=== PATIENT | male | born 2005 | race Caucasian/White ===

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

== ENCOUNTER 2024-10-30 13:10 | Emergency (ER) | payer BC ==
--- OUTSIDE RECORDS SUMMARY | 2024-10-30 13:13 | XMS REPORT | Continuity of Care Document ---
Author Name Unknown Address [address] [facility] [address] [place] [address] [facility] thconnect Address [address] [facility] [address] [place] [address] Care Team Providers Care Employee Relations Manager Name Role Phone Doctor Unassigned, [place] Attending Clinician Garfield Russell DO Attending Clinician Indira Draper Attending Clinician [phone] Payers Payer Name Policy Type Policy Number Effective Date Expirati on Date Source Problems Condition Name Condition Details Condition Category Status Onset Date Resolution Date Last Treatment Date Treating Clinician Comments Source Behavior causing concern in biological child Behavior causing concern in biological child Disease Active 2016-11 00:00: 00 [facility] Behavior causing concern in biological child Behavior causing concern in biological child Disease Active 2016-11 00:00: 00 [facility] Acne, unspecifie d acne type Acne, unspecifie d acne type Disease Active 06-24 00:00: 00 [facility] Varicocele Varicocele Disease Active 06-24 00:00: 00 [facility] Hx of hydrocele Hx of hydrocele Disease Active 06-24 00:00: 00 [facility] Hx of hydrocele Hx of hydrocele Disease Active 06-24 00:00: 00 [facility] Attention deficit hyperactiv ity disorder (ADHD), unspecifie d ADHD type Attention deficit hyperactiv ity disorder (ADHD), unspecifie d ADHD type Disease Active 11-07 00:00: 00 [facility] Social History Social Habit Start Date Stop Date Quantity Comments Source Sex Assigned At [facility] Tobacco use and exposure 2019-08-01 00:00:00 2019-08-01 00:00:00 Never used [facility] Tobacco Comment 2017-06-24 00:00:00 2017-06-24 00:00:00 mOC smokes outside the home [facility] Smoking Status Start Date Stop Date Source Never smoker [facility] Medications Ordered Medication Name Filled Medication Name Start Date Stop Date Current Medication? Ordering Clinician Indication Dosage Frequency Signature (SIG) Comments Components Source escitalopra m oxalate 5 mg tablet 07-26 00:00: 00 Yes TK ONE T PO QHS [facility] benzonatate (TESSALON PERLES) capsule 100 mg 07-19 03:00: 00 07-19 01:55 :00 No 100mg 100 mg, Oral, ONCE NOW, 1 dose, Thu07/18/19 at 2200, Routine [facility] NaCl 0.9% (NS) bolus infusion 1,000 mL 07-18 17:45: 00 07-18 23:33 :00 No 1000mL at 999 mL/hr, 1,000 mL, IV Infusion, ONCE, 1 dose, Thu07/18/19 at 1245, STAT [facility] guanFACINE ER 1 mg tablet 11-23 00:00: 00 Yes TK 1 T PO D [facility] CETIRIZINE 10 mg tablet 2017-11 00:00: 00 Yes TAKE 1 TABLET BY MOUTH EVERY DAY [facility] ibuprofen 600 mg tablet 04-01 00:00: 00 Yes 600mg Take 1 tablet by mouth every 8 (eight) hours as needed (alternate with T3 for pain). [facility] clindamycin -benzoyl peroxide (BENZACLIN) gel 06-24 00:00: 00 Yes [id number] Apply to area(s) 2 (two) times daily. [facility] Vital Signs Vital Name Observation Time Observation Value Comments S alyssia Systolic blood pressure 2019-07-19 00:00:00 122 mm[Hg] [facility] Diastolic blood pressure 2019-07-19 00:00:00 82 mm[Hg] [facility] Heart rate 2019-07-19 00:00:00 102 /min [facility] Respiratory rate 2019-07-19 00:00:00 27 /min [facility] Oxygen saturation in Arterial blood by Pulse oximetry 2019-07-19 00:00:00 99 /min [facility] Body temperature 2019-07-18 17:20:00 36.94 Torrie [facility] Body height 2019-07-18 17:20:[address] [facility] Body weight 2019-07-18 17:20:[address] [facility] BMI 2019-07-18 17:20:00 19.34 kg/m2 [facility] Procedures Procedure Date / Time Performed Performing Clinician Source AUTHORIZATION FOR RELEASE OF PHI 2020-07-22 05:01:00 Doctor Unassigned, [place] [facility] COMP. METABOLIC PANEL ([id number]) 2019-07-18 17:49:00 Garfield Cowart [facility] SALICYLATE 2019-07-18 17:49:00 Garfield Cowart [facility] ETHANOL 2019-07-18 17:49:00 [facility]field [facility] URINALYSIS 2019-07-18 17:49:00 Garfield Cowart [facility] ADC / LCC - DRUG SCREEN TRIAGE 2019-07-18 17:49:00 Garfield Cowart [facility] CBC WITH DIFFERENTIAL 2019-07-18 17:49:00 Minh Cowart [facility] NOTICE OF PRIVACY PRACTICES 2019-07-18 17:03:09 Doctor Unassigned, [place] [facility] CONSENT/REFUSAL FOR DIAGNOSIS AND TREATMENT 2019-07-18 17:02:59 Doctor Unassigned, [place] [facility] Encounters Start Date/Time End Date/Time Encounter Type Admission Type Attending Clinicians Care Facility Care Department Encounter ID Source 2023-10-16 11:02:36 2023-10-16 11:02:36 Outpatient [facility] [id number] Garth Akbar Malik 2023-09-04 13:02:10 2023-09-04 13:02:10 Outpatient [facility] [id number] Garth Gan 2020-07-22 00:00:00 2020-07-22 00:00:00 Orders Only Doctor Unassigned, [place] [facility] [id number] [facility] 2019-07-18 12:20:46 2019-07-18 22:25:00 Emergency Cowart Garfield [facility] [id number] [facility] 2019-07-18 00:00:00 2019-07-18 00:00:00 Orders Only Doctor Unassigned, [place] [facility] [id number] [facility] 2019-07-16 00:00:00 2019-07-16 00:00:00 Telephone Indira Brennan [facility] [id number] [facility] Results Test Description Test Time Test Comments Results Result Co mments Source [facility] 18:39:00* Test Item Value Reference Range Interpretation Comme nts SALICYLATE (test code = 0851407360) <10 mg/L MARC (test code = MARC) Therapeutic Range: ? Analgesic and Antipyretic Use? 20-100 mg/L? Anti-Inflammatory Use? 100-250 mg/LToxic Range:? Greater than 300 mg/L [facility]16 18:38:00* Test Item Value Reference Range Interpretation Comme nts ACETAMINOP (test code = 0243947083) <10.0 10-30 L MARC (test code = MARC) Toxic: Greater kem n 200 ug/mL @ 4 hour post ingestion or greater than 50 ug/mL @ 12 hour post ingestion Lab Interpretation (test code = 80834-0) Abnormal [facility]. METABOLIC PANEL ([id number])2019-07-18 18:37:00* Test Item Value Reference Range Interpretation Comme nts NA (test code = 1999122595) 144 mmol/L 135-145 K (test code = 1656820104) 4.8 mmol/L 3.5-5 CL (test code = 4901384289) 105 mmol/L 98-108 CO2 TOTAL (test code = 2505564422) 28 mmol/L 23-31 AGAP (test code = 3810198526) 2-16 BUN (test code = 3914828196) 15 mg/dL 7-23 GLUCOSE (test code = 6516025076) 87 mg/dL 70-110 CREATININE (test code = 5557432278) 0.74 mg/dL 0.6-1.25 TOTAL BILI (test code = 3480633848) 0.8 mg/dL 0.1-1.1 CALCIUM (test code = 7702669560) 10.2 mg/dL 8.6-10.6 T PROTEIN (test code = 0078972730) 8.0 g/dL 6.3-8.2 ALBUMIN (test code = 5717795079) 5.0 g/dL 3.5-5 ALK PHOS (test code = 8670390381) 177 U/L 60-420 ALT(SGPT) (test code = 2521471703) 21 U/L 9-51 AST(SGOT) (test code = 1961801217) 24 U/L 13-40 MARC (test code = [...] imaging tests). Lab Interpretation (test code = 70570-4) Normal [facility] - DRUG S[facility]EN [id number] 18:34:00* Test Item Value Reference Range Interpretation Comme nts BENZO U (test code = 6419281615) Negative Negative CARLOS U (test code = 9502619603) Negative Negative AMPHET (test code = 8602507196) Presumptive Positive Negative A THC (test code = 3421494372) Negative Negative METHADONE (test code = 7378006597) Negative Negative Meth U (test code = 0723521526) Negative Negative OPIATES (test code = 3433418679) Negative Negative Cocaine Metabolite (test code = 4502070485) Negative Negative PROPOXY (test code = 2430623869) Negative Negative Tric U (test code = 4568385214) Negative Negative PCP (test code = 3373770439) Negative Negative OXYCOD (test code = 8298935918) Negative Negative MARC (test code = MARC) [...] legal testing). Lab Interpretation (test code = 30824-5) [facility]normal [facility]16 18:14:00* Test Item Value Reference Range Interpretation Comme nts APPEARANCE (test code = 5717243461) Hazy Clear A COLOR (test code = 8565001461) Lucy Yellow A PH (test code = 0813973937) 4.8-8.0 SP GRAVITY (test code = 6422020700) 1.003-1.030 GLU U QUAL (test code = 2425265360) Normal Normal BLOOD (test code = 3550896577) Negative Negative KETONES (test code = 7589076038) Negative Negative PROTEIN (test code = 2887-8) 30 mg/dL Negative A UROBILIN (test code = 9010195753) Normal Normal BILIRUBIN (test code = 2902938301) Negative Negative NITRITE (test code = 5216819835) Negative Negative LEUK SANDEE (test code = 7666316390) Negative Negative RBC/HPF (test code = 1757675763) See_Comment H [Automated messa ge] The system which generated this result transmitted reference range: 0 - 3 HPF. The reference range was not used to interpret this result as normal/abnormal. WBC/HPF (test code = 0088843639) See_Comment [Automated messa ge] The system which generated this result transmitted reference range: 0 - 5 HPF. The reference range was not used to interpret this result as normal/abnormal. BACTERIA (test code = 5283700714) Negative Negative MUCOUS (test code = 7002601823) Marked Negative LPF A SQ EPITH (test code = 6385916882) HPF Lab Interpretation (test code = 64378-4) Abnormal [facility] WITH [id number] 18:05:00* Test Item Value Reference Range Interpretation [...] 34.2 g/dL 32-36 RDW-SD (test code = 64193-7) 38.9 fL 38.5-49 RDW-CV (test code = 788-0) 12.0 % 11.5-14 PLT (test code = 777-3) See_Comment [Automated messa ge] The system which generated this result transmitted reference range: 133 - 320 10*3/?L. The reference range was not used to interpret this result as normal/abnormal. MPV (test code = 42281-0) 10.9 fL 9.3-12.9 NRBC/100 WBC (test code = 1840746553) See_Comment [Automated iFollo ssage] The system which generated this result transmitted reference range: 0.0 - 10.0 /100 WBCs. The reference range was not used to interpret this result as normal/abnormal. NRBC x10^3 (test code = 8306973577) <0.01 See_Comment [Automated messa ge] The system which generated this result transmitted reference range: 10*3/?L. The reference range was not used to interpret this result as normal/abnormal. GRAN MAT (NEUT) % (test code = 770-8) 74.7 % IMM GRAN % (test code = 8637147053) 0.30 % LYMPH % (test code = 736-9) 14.9 % MONO % (test code = 5905-5) 9.0 % EOS % (test code = 713-8) 0.6 % BASO % (test code = 706-2) 0.5 % GRAN MAT x10^3(ANC) (test code = 8986427873) 7.53 10*3/uL 1.5-10.3 IMM GRAN x10^3 (test code = 4546619690) 0.03 10*3/uL 0-0.06 LYMPH x10^3 (test code = 731-0) 1.50 10*3/uL 0.7-7.4 MONO x10^3 (test code = 742-7) 0.91 10*3/uL 0-0.5 H EOS x10^3 (test code = 711-2) 0.06 10*3/uL 0-0.4 BASO x10^3 (test code = 704-7) 0.05 10*3/uL 0-0.1 Lab Interpretation (test code = 71632-1) Abnormal [facility]"
[2024-10-30 13:49] LABS: Absolute Eosinophils 0.1 K/uL (0-0.5); Absolute Lymphocytes (CBC) 1.8 K/uL (0.7-4.9); Absolute Monocytes 0.7 K/uL (0.1-1.3); Absolute Neutrophil 4.1 K/uL (1.8-8.0); Basophils % 0.3 % (0-1.3); Eosinophils % 1.4 % (0-4.4); Hematocrit 47.1 % (39.6-49.0); Hemoglobin 16.1 g/dL (13.6-17.9); Lymphocytes % 26.7 % (15.3-44.8); MCH 30.7 pg (27.0-35.0); MCHC 34.1 g/dL (32.0-36.0); MPV 9.2 fL (7.6-11.3); Monocytes % 10.8 % (3.3-12.3); Neutrophils % 60.8 % (41.7-73.7); Platelets 198 thou/uL (152-406); RBC Red Blood Cell Count 5.23 M/uL (4.33-5.43); Red Cell Distribution Width 12.6 % (12.1-15.2)
[2024-10-30 14:06] LABS: Albumin 4.3 g/dL (3.4-5.0); Albumin/Globulin Ratio 1.3 (1.1-1.8); Anion Gap 10.7 mEq/L (5.0-15.0); Bilirubin Direct 0.2 mg/dL (0-0.2); Bilirubin Indirect, Calculated 0.6 mg/dL (0.2-0.8); Bilirubin Total 0.8 mg/dL (0.2-1.0); Globulin 3.2 g/dL (2.3-3.5); Potassium 3.7 mEq/L (3.5-5.1); Protein, Total 7.5 g/dL (6.4-8.2)
[2024-10-30] MEDS ORDERED: LEVETIRACETAM 500 MG/5 ML VIAL IV ONE ×2 (14:07→14:08)
[2024-10-30] MEDS ORDERED: NA CHLORIDE 0.9% 100 ML ONE (14:08)
[2024-10-30] MEDS ORDERED: NA CHLORIDE 0.9% 1,000 ML ONE (14:08)
[2024-10-30 14:09] LABS: Specific Gravity 1.028 (1.005-1.030); Sqamous Epithelial <5 /HPF (None Seen); Urine Bacteria None Seen /HPF (<20); Urine Bilirubin NEGATIVE (Negative); Urine Blood Negative (Negative); Urine Clarity Clear (Clear); Urine Color Yellow (Yellow); Urine Culture Reflex Order NOT NEEDED; Urine Glucose NEGATIVE (Negative); Urine Ketones 1+ (Negative); Urine Microscopic Reflex YN ORDER UMIC; Urine Mucus Slight /HPF (None Seen); Urine Nitrite NEGATIVE (Negative); Urine Protein 1+ (Negative); Urine RBC <5 /HPF (None Seen); Urine Urobilinogen 3+ (Normal); Urine WBC <5 /HPF (<5); Urine pH 6.5 (5.0-7.0)
[2024-10-30 14:19] LABS: Barbiturates NEGATIVE (NEGATIVE); Benzodiazepines NEGATIVE (NEGATIVE); Cocaine NEGATIVE (NEGATIVE); METHAMPHETAM NEGATIVE (NEGATIVE); Methadone NEGATIVE (NEGATIVE); Opiates NEGATIVE (NEGATIVE); Phencyclidine NEGATIVE (NEGATIVE); THC Cannibis NEGATIVE (NEGATIVE)
--- NOTE | 2024-10-30 14:53 | RAD REPORT ---
EXAMINATION: CT HEAD WITHOUT CONTRAST CLINICAL INDICATION: Male, 19 years old.poss seizure, confused TECHNIQUE: Axial CT images from the skull base to the vertex without intravenous contrast. Coronal an d sagittal reformatted images were created from the data set. One or more of the following dose reduction techniques were used: Automated exposure control, adjustment of the mA and/or kV according to patient size, and/or iterative reconstruction. Unless otherwise specified, incidental findings do not require dedicated imaging follow-up. [id number]. COMPARISON: No prior exam. FINDINGS: INTRACRANIAL: No acute intracranial hemorrhage. No hydrocephalus. No mass effect or midline shift. No significant white matter disease VASCULATURE: No visualized abnormalities in the arteries or dural venous sinuses. SCALP/SKULL: No significant soft tissue or osseous abnormalities. SINUSES: Mucosal thickening right maxillary sinus. IMPRESSION: No acute intracranial abnormality.
--- NOTE | 2024-10-30 15:35 | ER ---
Nurse's Notes [facility] Name: Rafia Garrison Age: 19 yrs Sex: Male : 2005 Arrival Date: 10/30/2024 Time: 13:10 Bed 14 Private MD: Diagnosis: Other seizures Presentation: 10/30 13:19 Chief complaint: EMS states: possible seizure, witnessed by family, said was out for tm6 1-2 minutes. Patient smoked a CBD vape 4 days ago. Patient states he has been under a lot of stress lately. N/V x3 days, constipation x4 days, not eating much x1 week. Patient states he has a "stretchy feeling" in left chest. 13:22 Coronavirus screen: Client denies travel out of the [place] in the last 14 days. Ebola tm6 Screen: Patient negative for fever greater than or equal to 101.5 degrees Fahrenheit, and additional compatible Ebola Virus Disease symptoms Patient denies exposure to infectious person. Patient denies travel to an Ebola-affected area in the 21 days before illness onset. No symptoms or risks identified at this time. Initial Sepsis Screen: Does the patient meet any 2 criteria? No. Patient's initial sepsis screen is negative. Does the patient have a suspected source of infection? No. Patient's initial sepsis screen is negative. Risk Assessment: Do you want to hurt yourself or someone else? Patient reports no desire to harm self or others. Onset of symptoms was October 30, 2024. 13:22 Method Of Arrival: EMS: [facility] tm6 13:22 Acuity: VERONIQUE 4 tm6 Triage Assessment: 13:24 General: Appears in no apparent distress. Behavior is calm, cooperative. Pain: tm6 Complains of pain in chest Pain currently is 2 out of 10 on a pain scale. EENT: No signs and/or symptoms were reported regarding the EENT system. Neuro: Level of Consciousness is awake, alert, obeys commands, Oriented to person, place, time, situation. Cardiovascular: Reports chest pain. Respiratory: Airway is patent Respiratory effort is even, unlabored, Respiratory pattern is regular, symmetrical. GI: Abdomen is flat, non-distended, Reports anorexia, constipation, nausea, vomiting. : No signs and/or symptoms were reported regarding the genitourinary system. Derm: No signs and/or symptoms reported regarding the dermatologic system. Musculoskeletal: Reports pain in chest. Historical: - Allergies: 13:24 No Known Allergies; tm6 - PMHx: 13:24 murmur; ADD/ADHD; Schizophrenia; tm6 - PSHx: 13:24 hernia; tm6 - Immunization history:: Flu vaccine is not up to date. - Infectious Disease History:: Denies. - Social history:: Smoking status: Reported history of juuling and/or vaping. Screenin:00 [facility] ED Fall Risk Assessment (Adult) History of falling in the last 3 months, hb including since admission Yes- single mechanical fall (1 pt) Confusion or Disorientation No (0 pts) Intoxicated or Sedated No (0 pts) Impaired Gait No (0 pts) Mobility Assist Device Used No (0 pt) Altered Elimination No (0 pt) Score/Fall Risk Level 3 or more points = High Risk Oriented to surroundings, Maintained a safe environment, Educated pt \\T\\ family on fall prevention, incl call for assistance when getting out of bed, Assessed \\T\\ reinforced patient's understanding of fall precautions. Abuse screen: Denies threats or abuse. Denies injuries from another. Nutritional screening: No deficits noted. Tuberculosis screening: No symptoms or risk factors identified. Assessment: 14:02 General: Appears in no apparent distress. Behavior is calm, cooperative. Pain: Pain hb currently is 4 out of 10 on a pain scale. Neuro: Level of Consciousness is awake, alert, obeys commands, Oriented to person, place, time, situation. Cardiovascular: Patient's skin is warm and dry. Respiratory: Respiratory effort is even, unlabored, Respiratory pattern is regular, symmetrical. GI: No signs and/or symptoms were reported involving the gastrointestinal system. : No signs and/or symptoms were reported regarding the genitourinary system. EENT: No signs and/or symptoms were reported regarding the EENT system. Derm: Skin is pink, warm \\T\\ dry. Musculoskeletal: No signs and/or symptoms reported regarding the musculoskeletal system. 15:34 Reassessment: Patient appears in no apparent distress at this time. Patient states hb feeling better. Patient states symptoms have improved. 15:52 Reassessment: Patient appears in no apparent distress at this time. Patient and/or hb family updated on plan of care and expected duration. Pain level reassessed. Patient is alert, oriented x 3, equal unlabored respirations, skin warm/dry/pink. Vital Signs: 13:22 BP 146 / 115; Pulse 88; Resp 17; Temp 98.5(O); Pulse Ox 99% on R/A; MAP 125 mmHg; tm6 Weight 58.97 kg; Height 6 ft. 0 in. ; Pain 0/10; 14:00 BP 142 / 95; Pulse 86; Resp 16; Pulse Ox 99% on R/A; hb 15:00 BP 132 / 82; Pulse 68; Resp 16; Pulse Ox 99% on R/A; hb 13:22 Body Mass Index 17.63 (58.97 kg, 182.88 cm) tm6 13:22 Pain Scale: Adult tm6 Cecy Coma Score: 13:24 Eye Response: spontaneous(4). Motor Response: obeys commands(6). Verbal Response: tm6 oriented(5). Total: 15. ED Course: 13:11 Patient arrived in ED. eb 13:11 Renuka Tai PA-C is PHCP. sb4 13:11 Miguel Concepcion MD is Attending Physician. sb4 13:24 Triage completed. tm6 13:24 Arm band placed on right wrist. tm6 13:55 Inserted saline lock: 20 gauge in right antecubital area, using aseptic technique. hb Blood collected. Flushed with 10 mL NS. 14:00 Patient has correct armband on for positive identification. Provided Education on: use hb of call light . 14:12 Initial lab(s) drawn, by me, sent to lab. Urine collected: clean catch specimen, clear, le1 Amount Voided: 100mL. 14:[address] via stretcher. hb 14:44 Head Brain Wo Cont CT In Process Unspecified. EDMS 15:34 Evan Avila MD is Referral Physician. sb4 15:52 No provider procedures requiring assistance completed. IV discontinued, intact, hb bleeding controlled, No redness/swelling at site. Pressure dressing applied. Administered Medications: 14:02 Drug: Keppra IV 1000 mg IV at calculated rate once Route: IV; Rate: calculated rate; hb Site: right antecubital; 14:30 Follow up: Response: No adverse reaction; IV Status: Completed infusion hb 14:20 Drug: NS 0.9% IV 1000 ml IV at 1000 ml once; to be given as a bolus over 60 minutes hb Route: IV; Rate: 1000 ml; Site: right antecubital; 15:30 Follow up: Response: No adverse reaction; IV Status: Completed infusion hb Medication: 14:00 VIS not applicable for this client. hb Outcome: 15:35 Discharge ordered by MD. horton 15:52 Discharged to home ambulatory, hb 15:52 Condition: stable 15:52 Discharge instructions given to patient, Instructed on discharge instructions, follow up and referral plans. medication usage, Demonstrated understanding of instructions, follow-up care, medications, 15:53 Patient left the ED. hb Signatures: Dispatcher [employer] EDMS Gisella Silvestre RN RN hb Rehana Oconnell Sophia PA-C PA-Dandre sb4 Duncan Mercado RN RN tm6 Jeison Blanton RN RN le1 Corrections: (The following items were deleted from the chart) 13:24 13:19 Chief complaint: EMS states: possible seizure, witnessed by family tm6 tm6
--- NOTE | 2024-10-30 15:35 | EDPHYS ---
Physician Documentation [facility] Name: Rafia Garrison Age: 19 yrs Sex: Male : 2005 Arrival Date: 10/30/2024 Time: 13:10 Bed 14 Private MD: ED Physician Miguel Concepcion HPI: 10/30 14:28 This 19 yrs old Male presents to ER via EMS with complaints of Probable Seizure. sb4 14:28 The patient presents after having a possible seizure episode, the episode(s) was sb4 witnessed, by family, mother. Character of seizure(s): Loss of consciousness: the patient did not lose consciousness, Motor activity: generalized, Incontinence: none, Apnea: the patient did not experience apnea, Circulation: the patient did not experience evidence of pulse disturbance. Seizure onset: just prior to arrival. Context: the seizure(s) was witnessed, by family, mother, occurred at home, occurred while the patient was doing nothing. Contributing factors: nausea vomiting. Seizure Hx: the patient has no previous seizure history. Associated injury: The patient did not suffer any apparent associated injury. EMS care: none. Current symptoms: Currently, the patient is not experiencing any symptoms. The patient has not experienced similar symptoms in the past. 14:29 possible seizure witnessed by mother this morning. states his hands locked up and his sb4 body shook. patient does not remember the episode. denies any seizure history. states he has been sick for the past week with nausea, vomiting, abd pain. states he went to [place] last week and was told he had an ulcer, was prescribed medications, but did not pick them up. Historical: - Allergies: 13:24 No Known Allergies; tm6 - PMHx: 13:24 murmur; ADD/ADHD; Schizophrenia; tm6 - PSHx: 13:24 hernia; tm6 - Immunization history:: Flu vaccine is not up to date. - Infectious Disease History:: Denies. - Social history:: Smoking status: Reported history of juuling and/or vaping. ROS: 14:29 Constitutional: Negative for fever, chills, and weight loss, sb4 14:29 Abdomen/GI: Positive for abdominal pain, nausea and vomiting, 14:29 Neuro: Positive for seizure activity, 14:29 All other systems are negative, Exam: 14:29 Constitutional: This is a well developed, well nourished patient who is awake, alert, sb4 and in no acute distress. Head/Face: Normocephalic, atraumatic. Eyes: Extra-ocular motions intact. Periorbital areas with no swelling, redness, or edema. ENT: Mucous membranes moist. Cardiovascular: Regular rate and rhythm with a normal S1 and S2. Respiratory: No increased work of breathing, no retractions or nasal flaring. Abdomen/GI: Soft, non-tender, no distension. MS/ Extremity: Pulses equal, no cyanosis. Neurovascular intact. Full, normal range of motion. Neuro: Awake and alert, GCS 15, oriented to person, place, time, and situation. Motor strength 5/5 in all extremities. Sensory grossly intact. Vital Signs: 13:22 BP 146 / 115; Pulse 88; Resp 17; Temp 98.5(O); Pulse Ox 99% on R/A; MAP 125 mmHg; tm6 Weight 58.97 kg; Height 6 ft. 0 in. ; Pain 0/10; 14:00 BP 142 / 95; Pulse 86; Resp 16; Pulse Ox 99% on R/A; hb 15:00 BP 132 / 82; Pulse 68; Resp 16; Pulse Ox 99% on R/A; hb 13:22 Body Mass Index 17.63 (58.97 kg, 182.88 cm) tm6 13:22 Pain Scale: Adult tm6 Cecy Coma Score: 13:24 Eye Response: spontaneous(4). Motor Response: obeys commands(6). Verbal Response: tm6 oriented(5). Total: 15. MDM: 13:12 Medical Screening Exam initiated sb4 16:17 Data reviewed: vital signs, nurses notes, EMS record, lab test result(s), radiologic sb4 studies, and as a result, I will discharge patient. Consideration of Admission/Observation Escalation of care including admission/observation considered. Counseling: I had a detailed discussion with the patient and/or guardian regarding the historical points, exam findings, and any diagnostic results supporting the discharge/admit diagnosis, lab results, radiology results, the need for outpatient follow up, a neurologist, to return to the emergency department if symptoms worsen or persist or if there are any questions or concerns that arise at home. 10/30 13:21 Order name: Basic Metabolic Panel; Complete Time: 14:09 sb4 10/30 13:21 Order name: CBC with Diff; Complete Time: 14:00 sb4 10/30 13:21 Order name: ETOH Level; Complete Time: 14:09 sb4 10/30 13:21 Order name: Hepatic Function; Complete Time: 14:09 sb4 10/30 13:21 Order name: Salicylate; Complete Time: 14:49 sb4 10/30 13:21 Order name: Urinalysis w/ reflexes; Complete Time: 14:10 sb4 10/30 13:21 Order name: Urine Drug Screen; Complete Time: 14:23 sb4 10/30 13:21 Order name: Head Brain Wo Cont CT; Complete Time: 15:07 sb4 10/30 13:21 Order name: Labs collected and sent; Complete Time: 14:24 sb4 Administered Medications: 14:02 Drug: Keppra IV 1000 mg IV at calculated rate once Route: IV; Rate: calculated rate; hb Site: right antecubital; 14:30 Follow up: Response: No adverse reaction; IV Status: Completed infusion hb 14:20 Drug: NS 0.9% IV 1000 ml IV at 1000 ml once; to be given as a bolus over 60 minutes hb Route: IV; Rate: 1000 ml; Site: right antecubital; 15:30 Follow up: Response: No adverse reaction; IV Status: Completed infusion hb Disposition: 19:34 Co-signature as Attending Physician, Miguel Concepcion MD I reviewed the patient's care rn provided by the Advanced Practice Provider and agree with the diagnosis and treatment plan. Disposition Summary: 10/30/24 15:35 Discharge Ordered Notes: Location: Home sb4 Problem: new sb4 Symptoms: have improved sb4 Condition: Stable sb4 Diagnosis - Other seizures sb4 Followup: sb4 - With: Evan Avila MD - When: As needed - Reason: Further diagnostic work-up, Recheck today's complaints, Re-evaluation by your physician Discharge Instructions: - Discharge Summary Sheet sb4 - Seizure, Adult sb4 Forms: - Patient Portal Instructions sb4 - Leadership Thank You Letter sb4 Signatures: Dispatcher [employer] Miguel Stone MD MD rn Baxter, Heather, RN RN hb Brown, Sophia, PA-C PA-C sb4 Duncan Mercado RN RN tm6 Corrections: (The following items were deleted from the chart) 13:21 13:21 BASIC METABOLIC PANEL+C.LAB.BRZ ordered. EDMS EDMS 13:21 13:21 CBC+H.LAB.BRZ ordered. EDMS EDMS 13:21 13:21 ETHANOL+C.LAB.BRZ ordered. EDMS EDMS 13:21 13:21 HEPATIC FUNCTION+C.LAB.BRZ ordered. EDMS EDMS 13:21 13:21 SALICYLATE+C.LAB.BRZ ordered. EDMS EDMS 13:21 13:21 Urinalysis+U.LAB.BRZ ordered. EDMS EDMS 13:21 13:21 URINE DRUG SCREEN+UC.LAB.BRZ ordered. EDMS EDMS 13:21 13:21 Head Brain Wo Cont+CT.RAD.BRZ ordered. EDMS EDMS
[2024-10-30 16:15] VITALS: TEMP 98.5; O2SAT 99
[2024-10-30 16:19] VITALS: BP 132/82
== END 2024-10-30 15:53 | disposition home or self-care (01) ==
LOC: ER 13:10
DX: G40.89 Other seizures (principal)
CPT/HCPCS: 96365; 96361; 85025; 81001; 80048; 36415; 80076; 80307; 70450; 99285; 80179; 82077; J1953 ×2; J7030

== ENCOUNTER 2025-02-09 00:04 | Emergency (ER) | payer BC ==
--- OUTSIDE RECORDS SUMMARY | 2025-02-09 00:09 | XMS REPORT | Continuity of Care Document ---
Author Name Unknown Address [address] [facility] [place] [place] [address] Organization [facility] [place] Address [address] [facility] [place] [place] [address] Care Team Providers Care [employer] Operator Name Role Phone Pcp, Patient Does Not Have A Primary Care Physic stacey [place] Argueta MD Attending Clinician [phone] Campaigns, Generic Provider Attending Clinician Unavailable Dominic Clifton MD Attending Clinician [phone] DOMINIC CLIFTON Attending Clinician Unavailable DOMINIC CLIFTON Attending Clinician Unavailable Doctor Unassigned, Cameron Attending Clinician U Garfield Bloom DO Attending Clinician [phone] Indira Draper Attending Clinician [phone] DOMINIC CLIFTON Admitting Clinician Unavailable Payers Payer Name Policy Type Policy Number Effective Date Expirati on Date Source Problems Condition Name Condition Details Condition Category Status Onset Date Resolution Date Last Treatment Date Treating Clinician Comments Source Behavior causing concern in biological child Behavior causing concern in biological child Disease Active 2016-11 00:00: 00 [facility] Behavior causing concern in biological child Behavior causing concern in biological child Disease Active 2016-11 00:00: 00 [facility] Acne, unspecifie d acne type Acne, unspecifie d acne type Disease Active 06-24 00:00: 00 [facility] Varicocele Varicocele Disease Active 06-24 00:00: 00 [facility] Hx of hydrocele Hx of hydrocele Disease Active 06-24 00:00: 00 [facility] Hx of hydrocele Hx of hydrocele Disease Active 06-24 00:00: 00 [facility] Attention deficit hyperactiv ity disorder (ADHD), unspecifie d ADHD type Attention deficit hyperactiv ity disorder (ADHD), unspecifie d ADHD type Disease Active 11-07 00:00: 00 [facility] Allergies, Adverse Reactions, Alerts Allergy Name Allergy Type Status Severity Reaction(s) Onset Date Inactive Date Treating Clinician Comments Source NO KNOWN ALLERGIE S Drug Class Active [facility] Social History Social Habit Start Date Stop Date Quantity Comments Source History of tobacco use Passive smoker [facility] History of Social function 2019-05-12 00:00:00 2019-05-12 00:00:00 [facility] Tobacco use and exposure 2017-10-30 00:00:00 2017-10-30 00:00:00 Smokeless tobacco non-user [facility] Tobacco Comment 2017-06-24 00:00:00 2017-06-24 00:00:00 mOC smokes outside the home [facility] Sex assigned at 2005 00:00:00 2005 00:00:00 [facility] Smoking Status Start Date Stop Date Source Never smoked tobacco [facility] Medications Ordered Medication Name Filled Medication Name Start Date Stop Date Current Medication? Ordering Clinician Indication Dosage Frequency Signature (SIG) Comments Components Source ketorolac (TORADOL) injection 30 mg 2023-11 16:45: 00 10-31 16:32 :00 No 30mg 30 mg, Slow IV Push, ONCE, 1 dose, On Thu10/31/24 at 1045, Routine [facility] ondansetron (ZOFRAN (PF)) injection 4 mg 2023-11 16:45: 00 10-31 15:52 :00 No 4mg 4 mg, Slow IV Push, ONCE, 1 dose, On Thu10/31/24 at 1045, 2 mL [facility] NaCl 0.9% (NS) bolus infusion 1,000 mL 2023-11 16:30: 00 10-31 16:52 :00 No 1000mL at 999 mL/hr, 1,000 mL, IV Piggyback, ONCE, 1 dose, On Thu10/31/24 at 1030, STAT [facility] haloperidol lactate (HALDOL) injection 5 mg 2023-11 16:00: 00 10-31 15:58 :00 No 5mg 5 mg, Slow IV Push, ONCE, 1 dose, On Thu10/31/24 at 1000, STAT, Chemical Restraint: Yes, Attention: For chemical restraint, orders can ONLY be placed with ONCE frequency [facility] LORazepam (ATIVAN) injection 1 mg 2023-11 16:00: 00 10-31 15:57 :00 No 1mg 1 mg, Slow IV Push, ONCE, 1 dose, On Thu10/31/24 at 1000, STAT [facility] levETIRAcet am (KEPPRA) in NACL (ISO-OS) 1,000 mg/100 mL RTU 2023-11 15:45: 00 10-31 16:10 :00 No 1000mg 1,000 mg, IV Piggyback, ONCE, 1 dose, On Thu10/31/24 at 0945, Administer over 15 Minutes, 100 mL [facility] levETIRAcet am (KEPPRA) 1,000 mg tablet 2023-11 00:00: 00 10-31 00:00 :00 No [id number] 1000mg Take 1 tablet by mouth in the morning and 1 tablet in the evening. [facility] escitalopra m oxalate 5 mg tablet 07-26 00:00: 00 Yes TK ONE T PO QHS [facility] benzonatate (TESSALON PERLES) capsule 100 mg 07-19 03:00: 00 07-19 01:55 :00 No 100mg 100 mg, Oral, ONCE NOW, 1 dose, Thu07/18/19 at 2200, Routine [facility] NaCl 0.9% (NS) bolus infusion 1,000 mL 07-18 17:45: 00 07-18 23:33 :00 No 1000mL at 999 mL/hr, 1,000 mL, IV Infusion, ONCE, 1 dose, 07/18/19 at 1245, STAT [facility] guanFACINE ER 1 mg tablet 11-23 00:00: 00 Yes TK 1 T PO D [facility] CETIRIZINE 10 mg tablet 2017-11 00:00: 00 Yes TAKE 1 TABLET BY MOUTH EVERY DAY [facility] ibuprofen 600 mg tablet 04-01 00:00: 00 Yes 600mg Take 1 tablet by mouth every 8 (eight) hours as needed (alternate with T3 for pain). [facility] clindamycin -benzoyl peroxide (BENZACLIN) gel 06-24 00:00: 00 Yes [id number] Apply to area(s) 2 (two) times daily. [facility] Immunizations Ordered Immunization Name Filled Immunization Name Date Status Comments Source Influenza Virus Vaccine Quad .5 mL IM 6+ MO (FLUZONE/FLULAVAL/FLU ARIX) 2018-09-27 00:00:00 Completed Influenza Virus Vaccine Quad .5 mL IM 6+ MO 2018-09-27 00:00:00 Completed [facility] Influenza Virus Vaccine Quad .5 mL IM 6+ MO 2018-09-27 00:00:00 Completed [facility] Influenza Virus Vaccine Quad .5 mL IM 6+ MO 2018-09-27 00:00:00 Completed [facility] Influenza Virus Vaccine Quad .5 mL IM 6+ MO 2018-09-27 00:00:00 Completed [facility] HPV9 2017-01-01 00:00:00 Completed [facility] HPV9 2017-01-01 00:00:00 Completed [facility] HPV9 2017-01-01 00:00:00 Completed [facility] HPV9 2017-01-01 00:00:00 Completed [facility] HPV9 2017-01-01 00:00:00 Completed [facility] TDAP 2015-07-03 00:00:00 Completed [facility] HPV9 2015-07-03 00:00:00 Completed Meningococcal Polysaccharide (groups A, C, Y and W-135) conjugate vaccine (MCV4P) 2015-07-03 00:00:00 Completed Tdap 2015-07-03 00:00:00 Completed [facility] HPV9 2015-07-03 00:00:00 Completed [facility] Meningococcal Polysaccharide (groups A, C, Y and W-135) conjugate vaccine (MCV4P) 2015-07-03 00:00:00 Completed [facility] Tdap 2015-07-03 00:00:00 Completed [facility] HPV9 2015-07-03 00:00:00 Completed [facility] Meningococcal Polysaccharide (groups A, C, Y and W-135) conjugate vaccine (MCV4P) 2015-07-03 00:00:00 Completed [facility] Tdap 2015-07-03 00:00:00 Completed [facility] 2015-07-03 00:00:00 Completed [facility] Meningococcal Polysaccharide (groups A, C, Y and W-135) conjugate vaccine (MCV4P) 2015-07-03 00:00:00 Completed [facility] TDAP 2015-07-03 00:00:00 Completed [facility] HPV9 2015-07-03 00:00:00 Completed [facility] Meningococcal Polysaccharide (groups A, C, Y and W-135) conjugate vaccine (MCV4P) 2015-07-03 00:00:00 Completed [facility] Vital Signs Vital Name Observation Time Observation Value Comments S ource Systolic blood pressure 2024-10-31 18:00:00 97 mm[Hg] [facility] Diastolic blood pressure 2024-10-31 18:00:00 44 mm[Hg] [facility] Heart rate 2024-10-31 18:00:00 97 /min Unive [facility] Body temperature 2024-10-31 18:00:00 36.67 Torrie [facility] Respiratory rate 2024-10-31 18:00:00 22 /min [facility] Oxygen saturation in Arterial blood by Pulse oximetry 2024-10-31 18:00:00 95 /min [facility] Body height 2024-10-31 15:32:00 185.4 cm [facility] Body weight 2024-10-31 15:32:00 71.668 kg [facility] BMI 2024-10-31 15:32:00 20.85 kg/m2 [facility] Systolic blood pressure 2019-07-19 00:00:00 122 mm[Hg] [facility] Diastolic blood pressure 2019-07-19 00:00:00 82 mm[Hg] [facility] Heart rate 2019-07-19 00:00:00 102 /min [facility] Respiratory rate 2019-07-19 00:00:00 27 /min [facility] Oxygen saturation in Arterial blood by Pulse oximetry 2019-07-19 00:00:00 99 /min [facility] Body temperature 2019-07-18 17:20:00 36.94 Torrie [facility] Body height 2019-07-18 17:20:00 172.7 cm [facility] Body weight 2019-07-18 17:20:00 57.692 kg [facility] BMI 2019-07-18 17:20:00 19.34 kg/m2 [facility] Procedures Procedure Date / Time Performed Performing Clinician Source CT CERVICAL SPINE WO CONTRAST 2024-10-31 16:56:26 Dominic Clifotn [facility] CT HEAD WO CONTRAST 2024-10-31 16:56:05 Dominic Clifton [facility] MAGNESIUM 2024-10-31 15:42:00 Dominic Clifton [facility] COMP. METABOLIC PANEL ([id number]) 2024-10-31 15:42:00 Dominic Clifton [facility] ETHANOL 2024-10-31 15:42:00 Dominic Clifton [facility] CBC WITH DIFF 2024-10-31 15:42:00 Dominic Clifton [facility] AUTHORIZATION FOR RELEASE OF PHI 2020-07-22 05:01:00 Doctor Unassigned, Cameron [facility] COMP. METABOLIC PANEL ([id number]) 2019-07-18 17:49:00 Garfield Cowart [facility] SALICYLATE 2019-07-18 17:49:00 Garfield Cowart [facility] ETHANOL 2019-07-18 17:49:00 Garfield Cowart [facility] URINALYSIS 2019-07-18 17:49:00 Garfield Cowart [facility] ADC / LCC - DRUG SCREEN TRIAGE 2019-07-18 17:49:00 Garfield Cowart [facility] CBC WITH DIFFERENTIAL 2019-07-18 17:49:00 Minh Cowart [facility] NOTICE OF PRIVACY PRACTICES 2019-07-18 17:03:09 Doctor Unassigned, Cameron [facility] CONSENT/REFUSAL FOR DIAGNOSIS AND TREATMENT 2019-07-18 17:02:59 Doctor Unassigned, Cameron [facility] Encounters Start Date/Time End Date/Time Encounter Type Admission Type Attending [facility] Facility Care Department Encounter ID Source 2024-11-16 00:00:00 2024-11-16 11:22:55 Letter (Out) [place] Argueta [facility] [id number] [id number] [id number] [id number] [facility] 2024-11-09 00:00:00 2024-11-09 11:06:00 Letter (Out) Campaigns, Generic Provider Campaigns, Generic Provider [facility] [id number] 350.1.13.10 4.2.7.2.686 [id number] [facility] 2024-10-31 09:30:00 2024-10-31 12:27:00 Emergency Dominic Clifton [facility] [id number] 350.1.13.10 4.2.7.2.686 [id number] [facility] 2024-10-31 09:30:00 2024-10-31 12:27:00 Emergency X DOMINIC CLIFTON [facility] ERT [id number] [facility] 2023-10-16 11:02:36 2023-10-16 11:02:36 Outpatient [facility] [id number] Garth Gan 2023-09-04 13:02:10 2023-09-04 13:02:10 Outpatient [facility] [id number] Garth Gan 2020-07-22 00:00:00 2020-07-22 00:00:00 Orders Only Doctor Unassigned, Cameron [facility] [id number] 350.1.13.10 4.2.7.2.686 [id number] [facility] 2019-07-18 12:20:46 2019-07-18 22:25:00 Emergency Cowart Garfield [facility] [id number] 350.1.13.10 4.2.7.2.686 [id number] [facility] 2019-07-18 00:00:00 2019-07-18 00:00:00 Orders Only Doctor Unassigned, Cameron [facility] [id number] 350.1.13.10 4.2.7.2.686 [id number] [facility] 2019-07-16 00:00:00 2019-07-16 00:00:00 Telephone Indira Brennan [facility] [id number] 350.1.13.10 4.2.7.2.686 [id number] [facility] Results Test Description Test Time Test Comments Results Result Comments Source CT Cervical spine wo contrast 17:16:45 CT CERVICAL SPINE WO CONTRAST HISTORY: ?Neck pain, acute, no red flags ?fall COMPARISON: None. TECHNIQUE: Axial CT of the cervical spine without contrast. Coronal andsagittal reformats. Findings: Straightening of the cervical lordosis, likely positional. Anteroinferioraspect of C7 vertebral body is not included in the field of view. Novertebral body fracture or traumatic malalignment is identified. No facetfracture or subluxation is present. The craniocervical junction is intact.The prevertebral soft tissues are unremarkable. [facility] CT Head wo contrast 17:09:08 CT HEAD WO CONTRAST HISTORY: Mental status change, unknown cause COMPARISON: none TECHNIQUE: Unenhanced CT of the head was performed. Sagittal and coronalreformats were obtained. FINDINGS: There is no acute intracranial hemorrhage or significant mass effect. Thegray-white matter differentiation is preserved. No hydrocephalus, midlineshift or pathological extra-axial fluid collection is present. Theventricles and cerebral sulci are normal in caliber and configuration. Thebasal cisterns are unremarkable. The mastoid air cells and paranasal air sinuses are clear. The calvariumand central skull base are unremarkable. [facility] Ethanol 16:35:25 ALCOHOL<10mg/dL 4 10:35 AM [facility]<10 [id number] Toxic>100 Depression of AVIONICS TECHNICIAN>400 [facility] 16:27:19* Test Item Value Reference Range Interpretation Comme nts MAGNESIUM (test code = 5583816192) 2.0 mg/dL 1.7-2.4 Lab Interpretation (test cod e = 93937-1) Normal [facility] with [id number] 16:11:02* Test Item Value Reference Range Interpretation Comme nts WBC (test code = 6690-2) 5.17 4.20-10.70 RBC (test code = 789-8) 5.00 4.26-5.52 HGB (test code = 718-7) 15.6 g/dL 12.2-16.4 HCT (test code = 4544-3) 44.3 % 38.4-49.3 MCV (test code = 787-2) 88.6 fL 81.7-95.6 MCH (test code = 785-6) 31.2 pg 26.1-32.7 MCHC (test code = 786-4) 35.2 g/dL 31.2-35.0 H RDW-SD (test code = 77650-8) 37.2 fL 38.5-51.6 L RDW-CV (test code = 788-0) 11.6 % 12.1-15.4 L PLT (test code = 777-3) 177 150-328 MPV (test code = 87358-1) 10.8 fL 9.8-13.0 NRBC/100 WBC (test code = 9136394993) 0.0 0.0-10.0 NRBC x10^3 (test code = 1963762959) See_Comment [Automated messa ge] The system which generated this result transmitted reference range: 10*3/?L. The reference range was not used to interpret this result as normal/abnormal. GRAN MAT (NEUT) % (test code = 770-8) 61.2 % IMM GRAN % (test code = 3996648467) 0.20 % LYMPH % (test code = 736-9) 25.3 % MONO % (test code = 5905-5) 10.6 % EOS % (test code = 713-8) 2.1 % BASO % (test code = 706-2) 0.6 % GRAN MAT x10^3(ANC) (test code = 5561781376) 3.16 10*3/uL 1.99-6.95 IMM GRAN x10^3 (test code = 5623219695) 0.00-0.06 LYMPH x10^3 (test code = 731-0) 1.31 10*3/uL 1.09-3.23 MONO x10^3 (test code = 742-7) 0.55 10*3/uL 0.36-1.02 EOS x10^3 (test code = 711-2) 0.11 10*3/uL 0.06-0.53 BASO x10^3 (test code = 704-7) 0.03 10*3/uL 0.01-0.09 Lab Interpretation (test code = 92831-6) Abnormal [facility]2019-09-16 18:39:00* Test Item Value Reference Range Interpretation Comme nts ALCOHOL (test code = 3294752651) <10 mg/dL MARC (test code = MARC) <10 Pifzqqdm42-712 Toxic>100 Depression of AVIONICS TECHNICIAN>400 Fatalities Reported [facility]AL[facility]ATE2019-09-16 18:39:00* Test Item Value Reference Range Interpretation Comme nts SALICYLATE (test code = 3628842070) <10 mg/L MARC (test code = MARC) Therapeutic Range: ? Analgesic and Antipyretic Use? 20-100 mg/L? Anti-Inflammatory Use? 100-250 mg/LToxic Range:? Greater than 300 mg/L [facility] CenterACETAMINOPHEN2019-09-16 18:38:00* Test Item Value Reference Range Interpretation Comme nts ACETAMINOP (test code = 7912026908) <10.0 10-30 L MARC (test code = MARC) Toxic: Greater kem n 200 ug/mL @ 4 hour post ingestion or greater than 50 ug/mL @ 12 hour post ingestion Lab Interpretation (test code = 99985-3) Abnormal [facility] Center[facility]. METABOLIC PANEL (60920)2019-07-18 18:37:00* Test Item Value Reference Range Interpretation Comme nts NA (test code = 0827943479) 144 mmol/L 135-145 K (test code = 4344334922) 4.8 mmol/L 3.5-5 CL (test code = 8415548140) 105 mmol/L 98-108 CO2 TOTAL (test code = 6759938158) 28 mmol/L 23-31 AGAP (test code = 2081988999) 2-16 BUN (test code = 2293799174) 15 mg/dL 7-23 GLUCOSE (test code = 5418684510) 87 mg/dL 70-110 CREATININE (test code = 0599001476) 0.74 mg/dL 0.6-1.25 TOTAL BILI (test code = 5165808676) 0.8 mg/dL 0.1-1.1 CALCIUM (test code = 7875312584) 10.2 mg/dL 8.6-10.6 T PROTEIN (test code = 7039385471) 8.0 g/dL 6.3-8.2 ALBUMIN (test code = 8532024043) 5.0 g/dL 3.5-5 ALK PHOS (test code = 9326237530) 177 U/L 60-420 ALT(SGPT) (test code = 6775862575) 21 U/L 9-51 AST(SGOT) (test code = 1749622798) 24 U/L 13-40 MARC (test code = [...] imaging tests). Lab Interpretation (test code = 93428-8) Normal [facility] - DRUG SCREEN [id number] 18:34:00* Test Item Value Reference Range Interpretation Comme nts BENZO U (test code = 7102913065) Negative Negative CARLOS U (test code = 6018995173) Negative Negative AMPHET (test code = 8552108221) Presumptive Positive Negative A THC (test code = 6162439695) Negative Negative METHADONE (test code = 3992646455) Negative Negative Meth U (test code = 1243142119) Negative Negative OPIATES (test code = 2703959004) Negative Negative Cocaine Metabolite (test code = 6686376830) Negative Negative PROPOXY (test code = 6409327846) Negative Negative Tric U (test code = 4190610844) Negative Negative PCP (test code = 1907221906) Negative Negative OXYCOD (test code = 5026234102) Negative Negative MARC (test code = MARC) [...] legal testing). Lab Interpretation (test code = 68964-1) Abnormal [facility]2019-09-16 18:14:00* Test Item Value Reference Range Interpretation Comme nts APPEARANCE (test code = 9992213631) Hazy Clear A COLOR (test code = 5564142400) Lucy Yellow A PH (test code = 3417694960) 4.8-8.0 SP GRAVITY (test code = 9079079879) 1.003-1.030 GLU U QUAL (test code = 1299252996) Normal Normal BLOOD (test code = 0407546840) Negative Negative KETONES (test code = 5966775987) Negative Negative PROTEIN (test code = 2887-8) 30 mg/dL Negative A UROBILIN (test code = 4141361206) Normal Normal BILIRUBIN (test code = 1818098317) Negative Negative NITRITE (test code = 9570256941) Negative Negative LEUK SANDEE (test code = 8407349300) Negative Negative RBC/HPF (test code = 7289675850) See_Comment H [Automated [employer] ge] The system which generated this result transmitted reference range: 0 - 3 HPF. The reference range was not used to interpret this result as normal/abnormal. WBC/HPF (test code = 1741501103) See_Comment [Automated [employer] ge] The system which generated this result transmitted reference range: 0 - 5 HPF. The reference range was not used to interpret this result as normal/abnormal. BACTERIA (test code = 5153410270) Negative Negative MUCOUS (test code = 8119092138) Marked Negative LPF A SQ EPITH (test code = 5130736908) HPF Lab Interpretation (test code = 44254-4) Abnormal [facility] WITH [id number] 18:05:00* Test Item Value Reference Range Interpretation [...] 34.2 g/dL 32-36 RDW-SD (test code = 22261-0) 38.9 fL 38.5-49 RDW-CV (test code = 788-0) 12.0 % 11.5-14 PLT (test code = 777-3) See_Comment [Automated messa ge] The system which generated this result transmitted reference range: 133 - 320 10*3/?L. The reference range was not used to interpret this result as normal/abnormal. MPV (test code = 64685-0) 10.9 fL 9.3-12.9 NRBC/100 WBC (test code = 4393874544) See_Comment [Automated [employer] ssage] The system which generated this result transmitted reference range: 0.0 - 10.0 /100 WBCs. The reference range was not used to interpret this result as normal/abnormal. NRBC x10^3 (test code = 9749263042) <0.01 See_Comment [Automated messa ge] The system which generated this result transmitted reference range: 10*3/?L. The reference range was not used to interpret this result as normal/abnormal. GRAN MAT (NEUT) % (test code = 770-8) 74.7 % IMM GRAN % (test code = 1044784864) 0.30 % LYMPH % (test code = 736-9) 14.9 % MONO % (test code = 5905-5) 9.0 % EOS % (test code = 713-8) 0.6 % BASO % (test code = 706-2) 0.5 % GRAN MAT x10^3(ANC) (test code = 5816982061) 7.53 10*3/uL 1.5-10.3 IMM GRAN x10^3 (test code = 1104890836) 0.03 10*3/uL 0-0.06 LYMPH x10^3 (test code = 731-0) 1.50 10*3/uL 0.7-7.4 MONO x10^3 (test code = 742-7) 0.91 10*3/uL 0-0.5 H EOS x10^3 (test code = 711-2) 0.06 10*3/uL 0-0.4 BASO x10^3 (test code = 704-7) 0.05 10*3/uL 0-0.1 Lab Interpretation (test code = 38625-0) Abnormal [facility] Notes Date/Time Note Provider Source 2024-10-31 12:25:21 Pt given printed and verbal discharge instructions regarding seizure, substance abuse, encouraged hydration, Prescriptions provided Pt verbalized understanding of instructions, pt awake alert oriented, resp reg unlabored, skin w/d, color appropriate for race, moves all ext well,pt encouraged to follow up with pcp. Advised to seek medical attention for new/prolonged/worsening of symptoms. No adverse reaction to meds given in ER noted upon discharge PIV d'cd, dressing to site, catheter in tact. Awake, alert oriented, resp reg unlabored, skin w/d, pt leaving amb with steady gait, in no apparent distress, [facility] Asia Beltrán RN [facility] 2024-10-31 09:55:00 Pt got out of bed and ended up seizing on the floor. ED provider and charge nurse informed. NESS INSURANCE AGENT [facility] 2024-10-31 09:48:00 Patient had a seizure episode that lasted 10 secs, ED provider informed. Put patient on 2LPM by nasal cannula, ED provider at bedside. Patient then back to his baseline and states his chest hurts. ER Merritt RN [facility] 2024-10-31 09:30:48 EMS called to probation office for seizure like activity. Pt states he does not have history of seizures and had his first one yesterday. He was taken to ER yesterday and discharged. While at PO office he was sitting in chair, had seizure and fell over. Had one more when EMS arrived and EMS gave 1mg Ativan. Pt is A&Ox4 on arrival to ED. ER Ma RN [facility]"
[2025-02-09] MEDS ORDERED: LEVETIRACETAM 500 MG/5 ML VIAL IV ONE (00:29)
[2025-02-09] MEDS ORDERED: ONDANSETRON 4 MG/2 ML VIAL ONE (00:29)
[2025-02-09] MEDS ORDERED: KETOROLAC 30 MG/ML INJ ONE (00:29)
[2025-02-09] MEDS ORDERED: TDAP (DIPHTH,PERTUSS(ACELL),TET VAC) 0.5 ML VIAL IMVAC ONE (00:30)
[2025-02-09] MEDS ORDERED: NA CHLORIDE 0.9% 1,000 ML ONE (00:30)
[2025-02-09] MEDS ORDERED: NA CHLORIDE 0.9% 100 ML ONE (00:30)
[2025-02-09] MEDS ORDERED: LORAZEPAM 1 MG TABLET ONE (00:30)
[2025-02-09 01:03] LABS: Specific Gravity > 1.030 (1.005-1.030); Sqamous Epithelial <5 /HPF (None Seen); Urine Bacteria None Seen /HPF (<20); Urine Bilirubin NEGATIVE (Negative); Urine Blood Negative (Negative); Urine Clarity Clear (Clear); Urine Color Yellow (Yellow); Urine Culture Reflex Order NOT NEEDED; Urine Glucose NEGATIVE (Negative); Urine Ketones NEGATIVE (Negative); Urine Microscopic Reflex YN ORDER UMIC; Urine Mucus Slight /HPF (None Seen); Urine Nitrite NEGATIVE (Negative); Urine Protein TRACE (Negative); Urine RBC <5 /HPF (None Seen); Urine Urobilinogen Normal (Normal); Urine Yeast (Budding) Trace /HPF (None Seen); Urine pH 5.5 (5.0-7.0)
[2025-02-09 01:06] LABS: PT Prothrombin Time 10.2 SECONDS (10-13.0); PTT, Activated Partial Thromb 26.2 SECONDS (27.2-37.4); Protime INR 0.89
[2025-02-09 01:07] LABS: Absolute Basophils 0.1 K/uL (0-0.5); Absolute Eosinophils 0.2 K/uL (0-0.5); Absolute Lymphocytes (CBC) 2.3 K/uL (0.7-4.9); Absolute Monocytes 0.8 K/uL (0.1-1.3); Absolute Neutrophil 6.3 K/uL (1.8-8.0); Basophils % 0.5 % (0-1.3); Eosinophils % 1.9 % (0-4.4); Hematocrit 47.2 % (39.6-49.0); Hemoglobin 16.2 g/dL (13.6-17.9); Lymphocytes % 23.7 % (15.3-44.8); MCH 31.1 pg (27.0-35.0); MCHC 34.4 g/dL (32.0-36.0); MCV 90.4 fL (80-100); MPV 9.1 fL (7.6-11.3); Monocytes % 7.8 % (3.3-12.3); Neutrophils % 66.1 % (41.7-73.7); Nucleated Red Blood Cells % 0.1 % (0-0); Platelets 200 thou/uL (152-406); RBC Red Blood Cell Count 5.22 M/uL (4.33-5.43); Red Cell Distribution Width 13.5 % (12.1-15.2)
[2025-02-09 01:21] LABS: ALT/SGPT 21 U/L (16-61); AST/SGOT 19 U/L (15-37); Albumin 3.9 g/dL (3.4-5.0); Albumin/Globulin Ratio 1.3 (1.1-1.8); Alkaline Phosphatase 76 U/L (45-117); Anion Gap 7.9 mEq/L (5.0-15.0); BUN Blood Urea Nitrogen 18 mg/dL (7-18); Barbiturates NEGATIVE (NEGATIVE); Benzodiazepines NEGATIVE (NEGATIVE); Bicarbonate 28 mEq/L (21-32); Bilirubin Total 0.4 mg/dL (0.2-1.0); Cocaine POSITIVE (NEGATIVE); Globulin 3.1 g/dL (2.3-3.5); Glomerular Filtration Rate 126 ml/min (=/>90); Glucose Level 109 mg/dL (74-106); METHAMPHETAM NEGATIVE (NEGATIVE); Methadone NEGATIVE (NEGATIVE); Opiates NEGATIVE (NEGATIVE); Phencyclidine NEGATIVE (NEGATIVE); Potassium 3.9 mEq/L (3.5-5.1); Sodium Level 139 mEq/L (136-145); THC Cannibis POSITIVE (NEGATIVE)
[2025-02-09 01:22] LABS: Bilirubin Direct < 0.2 mg/dL (0-0.2); Bilirubin Indirect, Calculated 0.2 mg/dL (0.2-0.8)
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
[2025-02-09 04:26] VITALS: BP 115/67; TEMP 98.4; O2SAT 99
--- NOTE | 2025-02-09 06:08 | RAD REPORT ---
EXAM DESCRIPTION: Head C Spine Mpr Wo Con CLINICAL HISTORY: headache, head injury COMPARISON: None available TECHNIQUE: Axial CT of the head obtained from the skull apex to the skull base without contrast. Axia l CT images of the cervical spine obtained without contrast. This exam was performed according to our departmental dose-optimization program, which includes automated exposure control, adjustment of the mA and/or kV according to patient size and/or use of iterative reconstruction technique. FINDINGS: Head CT: No acute intracranial hemorrhage identified. No mass, mass effect, shift of the midline, abnormal ext ra-axial fluid collection or CT evidence of acute ischemic change identified. The ventricular system is unremarkable. No acute abnormalities of the supratentorial white matter, basal ganglia, c erebellum, or brainstem. The visualized paranasal sinuses and the mastoids are relatively well aerated. No skull fracture id entified. Visualized orbits and globes are unremarkable. Cervical CT : Straightening of the cervical lordosis may be secondary to patient positioning. The atlantoaxial, a tlantodental, and occipitoatlantal intervals are preserved. No fracture identified. Vertebral body height preserved. Prevertebral soft tissues are unremarkable. Intervertebral disc height preserved. Visualized skull base is intact. Visualized mastoid air cells and paranasal sinuses are well aerat ed. Visualized thyroid is unremarkable. No cervical lymphadenopathy. No pneumothorax in the visualized lung apices. IMPRESSION: 1. No acute intracranial abnormality identified. 2. No acute fracture or subluxation of the cervical spine. Electronically signed by: Ashwin Lux DO 02/09/2025 02:38 AM CDT 4ZDM Due to temporary technical issues with the [employer]ACS[employer] reporting system, reports are being clay d by the in-house radiologist without review as a courtesy to ensure prompt reporting the interpreting radiologist is fully responsible for the content of the report. Transcribed Date/Time: 02/09/2025 6:08 AM
--- NOTE | 2025-02-09 11:45 | EKG ---
Test Date: 2025-02-09 Test Time: 00:18:21 Building Performance Consultant: MB MEASUREMENT RESULTS: Intervals: Rate: 79 FL: 132 QRSD: 102 QT: 412 QTc: 472 [place]: P: 139 FL: 132 QRS: 128 T: 85 INTERPRETIVE STATEMENTS: Suspect arm lead reversal, interpretation assumes no reversal Unusual P axis, possible ectopic atrial rhythm Abnormal ECG Compared to ECG 01/27/2018 11:27:45 Sinus rhythm no longer present Electronically Signed On 02-09-25 11:44:16 CDT by Rudy Flynn
== END 2025-02-09 04:21 | disposition home or self-care (01) ==
LOC: ER 00:04
DX: G40.909 Epilepsy, unspecified, not intractable, without status epilepticus (principal); S00.212A Abrasion of left eyelid and periocular area, initial encounter; Z91.148 Patient's other noncompliance with medication regimen for other reason; F14.10 Cocaine abuse, uncomplicated; F12.10 Cannabis abuse, uncomplicated; F20.9 Schizophrenia, unspecified; W18.30XA Fall on same level, unspecified, initial encounter; Z23 Encounter for immunization
CPT/HCPCS: 96365; 93005; 85025; 81001; 80048; 36415; 85610; 80076; 85730; 80307; 70450; 72125; 90715; 96375; 99285; 80143; 80179; 82077; J1953; J2405; J7030